=== PATIENT | female | born 2000 | race African-American/Black ===

== ENCOUNTER 2024-04-27 11:58 | Emergency (ER) | payer SELFPAY ==
[2024-04-27] MEDS ORDERED: Iopamidol 370 76% 100 ML VIAL ONE (12:51)
[2024-04-27] MEDS ORDERED: Acetaminophen 500 MG TAB ONE (13:58)
[2024-04-27 14:37] LABS: #Basophils Less than 0.03 10x3/uL (0.0-0.2); %Basophils 0.2 % (0.0-1.0); %Eosinophils 0.5 % (0.0-10.0); %Lymphocytes 14.1 % (21.0-51.0); %Monocytes 9.7 % (0.0-10.0); %Neutrophils 75.2 % (42.0-75.0); Hematocrit 42.3 % (36.0-47.0); Mean Corpuscular HGB CONC 33.1 g/dL (32.0-36.0); Mean Corpuscular Hemoglobin 27.3 pg (27.0-31.0); Mean Corpuscular Volume 82.6 fL (78.0-98.0); Mean Platelet Volume 9.7 fL (7.4-10.4); Platelet Count 239 10x3/uL (130-400); RBC Distribution Width 13.6 % (11.5-14.5); Red Blood Cell (RBC) Count 5.12 mill/uL (4.20-5.40)
[2024-04-27 15:10] LABS: ALT (SGPT) 7 U/L (Less than 34); AST (SGOT) 22 U/L (11-34); Alkaline Phosphatase 49 U/L (40-110); Anion Gap 18 mmol/L (10-20); BUN (Urea Nitrogen) 9 mg/dL (7.0-18.7); Bilirubin, Total 2.1 mg/dL (0.3-1.2); Calc. Creatinine Clearance 0 mL/min (70-130); Calcium 10.2 mg/dL (7.8-10.44); Carbon Dioxide 20 mmol/L (22-29); Chloride 105 mmol/L (98-107); Estimated GFR 109; Globulin 3.6 g/dL (2.4-3.5); Glucose 93 mg/dL (70-105); Potassium 3.8 mmol/L (3.5-5.1); Protein, Total 8.6 g/dL (6.0-8.3); Sodium 139 mmol/L (136-145)
[2024-04-27 15:13] LABS: BHCG - Serum Negative (NEGATIVE); Pregs Control Background? CLEAR/WHITE (CLR/WHITE); Pregs Control Bar Appear? YES (CONTROL BAR)
[2024-04-27 15:15] LABS: Troponin I 0.021 ng/mL (< 0.028)
[2024-04-27] MEDS ORDERED: Ketorolac Tromethamine 30 MG (1 mL) VIAL ONE (15:54)
== END 2024-04-27 16:06 | disposition home or self-care (01) ==
LOC: ERS 11:58
DX: B34.9 Viral infection, unspecified (principal)
CPT/HCPCS: 71275; 80053; 84484; 84703; 85025; 87081; 87428; 87430; 93005; 93970; 96374; J1885; Q9967